=== PATIENT | male | born 1960 | race Caucasian/White ===

== ENCOUNTER → 2023-09-06 08:00 | Day surgery (SDC) | payer OTHER, SELFPAY | LOC: GI 08:00 | PROVIDERS: ATTENDING PHYSICIAN Internal Medicine Gastroenterology; FAMILY PHYSICIAN Family Medicine | DX: Z12.11 Encounter for screening for malignant neoplasm of colon (principal); K64.8 Other hemorrhoids | CPT/HCPCS: G0121 ==

== ENCOUNTER 2023-09-19 09:47 | Emergency (ER) | payer OTHER, SELFPAY ==
[2023-09-19 09:54] VITALS: BP 159/99
[2023-09-19 10:47] VITALS: BMI 40.6
--- NOTE | 2023-09-19 11:30 | ED.GENMED ---
History of Present Illness
General
Chief Complaint: Musculo-Skeletal Complaint
Source: patient
Exam Limitations: none
Time Seen by Provider: 09/19/23 10:35
Nursing documentation reviewed up to this point in time: agreed with
Travel History
Have you had any contact with someone who has COVID-19?: No
Do you have any symptoms of coronavirus? Fever > 100 degrees, chills, cough, shortness of breath, sore throat, loss of taste or smell, muscle aches, or headache?: No
History of Present Illness
History of Present Illness:
pt is a 62 y/o M with h/o chroinc L knee problems after injury 30 yeras ago, he had torn ligaments and tibial plateau fracture
He had reconstructive surgery in [place] at that time. He is occasionally had pain off and on over the years but usually can manage after a day or 2 of NSAIDs. About a week ago he was walking and tweaked it and felt sudden onset of pain. He has
been trying NSAIDs at home without relief. Now the knee is more swollen and he has very Painful limited range of motion. He is not having any redness or warmth, fevers or chills, chest pain or shortness of breath. Patient did not take anything
today for pain yet. He is here requesting an MRI of his knee, he has not seen an orthopedist in this area in years.
Past History
Past History
ED Past Medical History: HTN and Other (brain aneurysmk)
ED Past Surgical History: Brain
Social History
Tobacco: Non-smoker
Alcohol: None
Drug: None
Personal:
Living: alone
Employment: Employed
Review of Systems
Review of Systems
Allergies reviewed?: Yes
All Other Systems: Not applicable
Phy Exam
Physical Exam
Physical Exam:
GENERAL: Alert , in no apparent distress, comfortable at rest
HEAD: NCAT
CV: 2+ DP PULSES B/L
NEUROLOGICAL: Alert and oriented, no focal neuro deficits, , 5/5 strength, sensation intact, ambulation slight limp right leg
SKIN: Warm and dry,
MUSCULOSKELETAL:moderate joint swelling L knee
no overlying erythema
nontender
no warmth
painful limited flexion 20 degrees
severe pain with varus and valgus stress
calf soft
PSYCH: Normal and appropriate interaction.
Course
Orders/Labs/Results
Orders:
Orders
09/19/23 10:02
CR Knee - Left 4 Or More View* Urgent
Comment:
Reason For Exam: pain, instability
09/19/23 11:26
HYDROmorphone [Dilaudid] 1 mg IM NOW STA
Ketorolac [Toradol] 30 mg IM NOW STA
09/19/23 11:30
Oxycodone [Roxicodone] 5 mg PO NOW STA
Vital Signs
Initial and Last Documented VS:
Initial Vital Signs
Temp Pulse Resp BP Pulse Ox
98.1 F 77 22 159/99 97
09/19/23 09:54 09/19/23 09:54 09/19/23 09:54 09/19/23 09:54 09/19/23 09:54
Last Documented Vital Signs
Temp Pulse Resp BP Pulse Ox
98.1 F 77 22 159/99 97
09/19/23 09:54 09/19/23 09:54 09/19/23 09:54 09/19/23 09:54 09/19/23 09:54
MDM/Problems Addressed
Differential Diagnosis Includes:
knee effusion, arthritis,
MDM/Problems Addressed:
62 y/o M with remote reconstructive knee surgery
here with pain x 7 days after tweaking it while walking.
has had increased swellinga nd limited rom an dpain with weight bearing
his normal aleve doesnt help
no rednesss/warmth
no fever/chills
no calf pain or distal pain
able to flex 20 degrees with moderate discomfort
moderate effusion
no warmth or erythema
xray indep reviewed by me, tricompartmental arthritis, post op changes, no acute findings other than effusion
d/w dr. hutchinson from ortho
outpatient will likely need MRI
pain control
knee immob
crutches.
*Critical Care Note
Total Time (30-74mins, 75-104mins- exclusive of procedures): Not Applicable
ED Attending Note
-
Portions of this chart may have been created with voice recognition software.� Occasional wrong word or��sound alike� substitutions may have occurred due to the inherent limitations of voice recognition software.
Discharge Plan
Departure
Patient Disposition: Home (Routine Discharge)
Date of Disposition: 09/19/23
Time of Disposition: 11:41
Patient with high blood pressure during this ER visit?: Yes
Condition: Fair
Covid-19: Not Applicable
Discharge Problem:
Effusion of knee joint, left, Arthritis of knee, left
Instructions: Osteoarthritis (DC), Swollen Joints (DC)
Prescriptions:
New
oxycodone 5 mg tablet
5 mg PO Q8H PRN (Reason: Pain) Qty: 20 0RF
naproxen 500 mg tablet
500 mg PO BID 7 Days Qty: 14 0RF
Referrals:
Raj Flanagan MD [Family Provider] -
August Hutchinson MD [Active] - Follow up in 5-7 days
Stand Alone Forms: Return to Work
Activity Restrictions/Additional Instructions:
You do have some swelling within your joint called an effusion. This is likely from the chronic injury and arthritis. You should take Aleve twice a day, Tylenol 3 regular strength 3 times a day and if needed you can use oxycodone 5 mg every 8
hours for severe pain. If you are on the oxycodone be sure to use a stool softener because this can cause constipation. Use the knee immobilizer while awake, you can remove it at night. Use crutches to help you avoid putting weight on your left
foot, you can toe touch or put your heel down if you need to. Follow-up with orthopedics, call and say you were seen in the ER. I did speak with Dr. Hutchinson who is on-call. You will likely need an outpatient MRI. Return to the ER for redness,
severe swelling, inability to move, fevers or chills or any concerns
Interventions
Interventions:
*Risk Screen - Suicide Last Done: 09/19/23 10:47
*General Assessment Last Done: 09/19/23 10:47
*Neglect/Abuse Screening Last Done: 09/19/23 10:47
ED- Fall Risk Assessment Last Done: 09/19/23 12:16
*ED COVID-19 Vaccine History Last Done: 09/19/23 10:47
*Nursing Disposition Last Done: 09/19/23 12:16
ED-Musculoskeletal Assessment Last Done: 09/19/23 10:47
Discharge Date and Time
Discharge Date/Time: 09/19/23 12:17
[2023-09-19] MEDS: ROXICODONE 5 MG PO (11:36)
[2023-09-19] MEDS: DILAUDID 1 MG IM (11:37)
[2023-09-19] MEDS: TORADOL 30 MG IM (11:37)
== END 2023-09-19 12:17 | disposition home or self-care (01) ==
LOC: EMR 09:47
PROVIDERS: EMERGENCY PHYSICIAN Emergency Medicine; FAMILY PHYSICIAN Family Medicine
DX: M17.12 Unilateral primary osteoarthritis, left knee (principal); I10 Essential (primary) hypertension
CPT/HCPCS: 99284; 96372 ×2; 73564

== ENCOUNTER → 2023-09-21 13:13 | Outpatient (REF) | payer OTHER, SELFPAY | LOC: RAD 13:13 | PROVIDERS: ATTENDING PHYSICIAN Orthopaedic Surgery; FAMILY PHYSICIAN Family Medicine | DX: T14.8XXA Other injury of unspecified body region, initial encounter (principal) | CPT/HCPCS: 70250 ==

== ENCOUNTER 2024-03-02 06:22 | Day surgery (SDC) | payer OTHER, SELFPAY ==
[2024-02-07 10:22] LABS: % Basophils 1.4 % (0-2); % Eosinophils 7.5 % (0-6); % Immature Granulocytes 0.3 % (0-0.5); % Lymphocytes 36.8 % (20.5-51.1); % Monocytes 6.8 % (1.7-9.3); % Neutrophils 47.2 % (42.2-75.2); Absolute Basophils 0.1 10^3/uL (0-0.2); Absolute Eosinophils 0.5 10^3/uL (0-0.7); Absolute Lymphocytes 2.5 10^3/uL (1.2-3.4); Absolute Monocytes 0.5 10^3/uL (0.1-0.6); Absolute Neutrophils 3.3 10^3/uL (1.4-6.5); Hematocrit 47.8 % (39.0-52.0); Hemoglobin 16.5 g/dL (13.0-18.0); Mean Corp Hgb Conc. 34.5 g/dL (33.0-37.0); Mean Corpuscular Volume 92.6 fL (80.0-94.0); Mean Platelet Volume 10.4 fL (7.4-10.4); Nucleated Red Blood Cells % 0 % (-); Platelet Count 249 10^3/uL (130-400); Red Blood Cell Count 5.16 10^6/uL (4.70-6.10); White Blood Cell Count 6.9 10^3/uL (4.8-10.8)
[2024-02-07 14:18] VITALS: BMI 37.2
[2024-02-14 09:10] LABS: Blood Urea Nitrogen 15 mg/dl (9-20); Carbon Dioxide 22 mmol/L (22-30); Chloride 110 mmol/L (98-107); Estimated Creatinine Clearance 103 ml/min; Glucose 96 mg/dl (70-99); Potassium 4.6 mmol/L (3.5-5.1); Sodium 138 mmol/L (135-145); eGFR > 60.00
[2024-02-15 11:07] VITALS: BMI 37.9
[2024-03-02] VITALS (18 sets, daily range): BP systolic 88–133; BP diastolic 50–100; BMI 37.9
[2024-03-02] MEDS: TYLENOL 1000 MG PO (11:05)
[2024-03-02] MEDS: CELEBREX 200 MG PO (11:06)
[2024-03-02] MEDS: NORMOSOL-R 1000 IV (11:16)
[2024-03-02] MEDS: DILAUDID 0.5 MG IV (15:40)
--- NOTE | 2024-03-02 18:12 | OR.RPT ---
Operative Report
Operative Report
Orthopaedic Surgery Operative Note
DATE OF OPERATION: 03/02/2024
PREOPERATIVE DIAGNOSIS: Left symptomatic proximal tibia hardware, left knee osteoarthritis, history of tibia plateau fracture
POSTOPERATIVE DIAGNOSIS: Same
OPERATION PERFORMED: Left proximal tibia removal of hardware
SURGEON: Justin Tan MD
CLINICAL DATA SPECIALIST: Aureliano Vaca PA-C
ANESTHESIA: General
COMPLICATIONS: None.
ESTIMATED BLOOD LOSS: 5 mL.
DRAINS: None
SPECIMEN: None
TOURNIQUET: 14 minutes
IMPLANTS:
NA
INDICATIONS FOR PROCEDURE
60-year-old male with advanced left knee osteoarthritis and history of left proximal tibia fracture treated with ORIF. He is having severe knee pain is interested in left knee replacement. His x-ray showed proximal tibial screws transfixing the
proximal tibia. We discussed that these would be in the way of future knee replacement. We discussed staged hardware removal. We discussed surgery and the recovery process. The patient and understood the risks including, but were not limited to,
bleeding, infection, failure to relieve pain, more pain than preop, damage to blood vessels and nerves, need for reoperation, mechanical failure of the implants, wound healing problems, stiffness, instability, blood clot, pulmonary embolism,
myocardial infarction, pneumonia, arrhythmia, CVA, and . All questions were answered, and informed consent was obtained.
PROCEDURE IN DETAIL: The patient was identified in the preoperative holding area. The operative limb was identified as the operative site and marked with my initials. The patient was transferred to the operating room. General anesthesia was
performed. The patient was transferred to the operative table. IV antibiotics and tranexamic acid were given. All bony prominences were well padded. The operative limb was prepped and draped in the usual sterile fashion.
Prior incisions were identified and marked. Fluoroscopy was used to aid in identifying the screw heads. Skin incision was made and dissection was made down to the screw heads. The ITB was split in line with its fibers to expose the proximal screw.
The screw heads were exposed with a rongeur. Electrocautery was used for hemostasis. The proximal and distal screws were removed without incident. The washers were removed as well. Fluoroscopy was used to confirm hardware removal. The incisions
were copiously irrigated with 3L normal saline. The deep fascial layers were closed with 0 vicryl. The dermal layer closed with 2-0 PDS running. The skin was closed with 3-0 monocryl. Skin glue was applied as well as sterile dressings. The patient
was awoken from anesthesia without complication.
The patient awoke from anesthesia without difficulty. Sponge and instrument counts were correct x2 at the end of the case. I was present and participated in the entire procedure. The patient was sent to the recovery room in stable condition.
Raghu Tan MD
== END 2024-03-02 16:48 | disposition home or self-care (01) ==
LOC: SDS 06:22
PROVIDERS: ATTENDING PHYSICIAN Orthopaedic Surgery; FAMILY PHYSICIAN Family Medicine
DX: T84.84XA Pain due to internal orthopedic prosthetic devices, implants and grafts, initial encounter (principal); Y83.8 Other surgical procedures as the cause of abnormal reaction of the patient, or of later complication, without mention of misadventure at the time of the procedure; M17.32 Unilateral post-traumatic osteoarthritis, left knee; S82.142S Displaced bicondylar fracture of left tibia, sequela; X58.XXXS Exposure to other specified factors, sequela
CPT/HCPCS: 20680; 36415; 73560; 76000; 80048; 85025; 93005